=== PATIENT | male | born 2000 | race Two or more races ===

== ENCOUNTER 2021-06-25 16:05 | Emergency (ER) | payer OTHER ==
[~2021-06-25] VITALS: Ht 175.3 cm; Wt 75.0 kg
[2021-06-25 16:24] VITALS: BP 116/84
== END 2021-06-25 17:07 | disposition left against medical advice (07) ==
LOC: EMS 16:10
DX: F10.10 Alcohol abuse, uncomplicated (principal); F19.10 Other psychoactive substance abuse, uncomplicated; F17.210 Nicotine dependence, cigarettes, uncomplicated
CPT/HCPCS: 99281